=== PATIENT | female | born 1990 | race Hispanic/Latino ===

== ENCOUNTER 2023-04-28 12:53 | Emergency (ER) | payer BC | END 2023-04-28 13:41 | disposition home or self-care (01) | LOC: CSHERS 12:53 | DX: H10.9 Unspecified conjunctivitis (principal); K12.0 Recurrent oral aphthae; Z87.891 Personal history of nicotine dependence | CPT/HCPCS: 99282 ==

== ENCOUNTER 2023-09-16 10:51 | Emergency (ER) | payer BC ==
[2023-09-16 12:31] LABS: SARS-CoV-2 NAA Rapid Test Not Detected (NotDetected)
== END 2023-09-16 13:02 | disposition home or self-care (01) ==
LOC: CSHERS 10:51
DX: J10.1 Influenza due to other identified influenza virus with other respiratory manifestations (principal); Z20.822 Contact with and (suspected) exposure to COVID-19; F17.290 Nicotine dependence, other tobacco product, uncomplicated
CPT/HCPCS: 87081; 87430; 99283